=== PATIENT | male | born 1980 ===

== ENCOUNTER 2019-09-10 17:45 | Emergency (ER) | payer OTHER ==
[~2019-09-10] VITALS: Ht 177.8 cm; Wt 147.4 kg
[2019-09-10] MEDS ORDERED: IBUP800 PO (21:48)
== END 2019-09-10 22:02 | disposition home or self-care (01) ==
LOC: ER 17:45
DX: S83.92XA Sprain of unspecified site of left knee, initial encounter (principal); S83.91XA Sprain of unspecified site of right knee, initial encounter; M17.0 Bilateral primary osteoarthritis of knee; W19.XXXA Unspecified fall, initial encounter
CPT/HCPCS: 73562-LT; 73562-RT; 99283-25

== ENCOUNTER → 2019-12-28 | Outpatient (CLI) | payer BC, OTHER ==
[~2019-12-28] MED LIST: IBUP800 PO; METF500 PO
== END | disposition home or self-care (01) ==
LOC: LAB EV 12:33 → LAB SHORT 12:33
DX: E10.65 Type 1 diabetes mellitus with hyperglycemia (principal)
CPT/HCPCS: 83036